=== PATIENT | male | born 1980 | race Caucasian/White ===

== ENCOUNTER 2020-04-26 09:07 | Emergency (ER) | payer OTHER ==
[~2020-04-26] VITALS: Ht 360.7 cm; Wt 109.0 kg
[2020-04-26 09:14] VITALS: BP 153/68
--- NOTE | 2020-04-26 09:28 | PHYS DOC ---
Past History Past Medical History: Hypertension Alcohol Use: Occasionally General Adult EDM: Chief Complaint: CHEST PAIN-CARDIAC NATURE HPI: HPI: 40-year-old male coming in for chest pain since going to bed last night. Patient states he has not had this kind of pain before and has no history of reflux. Says the pain is substernal and intermittently sharp. Says when it com es and goes it is 9 out of 10, currently 3-4 out of 10. Denies any associated symptoms. Denies any diaphoresis, nausea, vomiting, lightheadedness, headaches. Patient has a family history of heart disease on both sides, patient states he only has a history of hypertension and is compliant with medications. Denies any history of tobacco, alcohol, drugs. Review of Systems: Review of Systems: All other systems within normal limits except for as noted in the HPI Allergies: Allergies: Allergies Coded Allergies Type Severity Reaction Last Updated Verified No Known Drug Allergies 04/26/20 No Physical Exam: PE: Constitutional: Well developed, well nourished, no acute distress, non-toxic appearance. [] HENT: Normocephalic, atraumatic, bilateral external ears normal, nose normal. [] Eyes: PERRLA, conjunctiva normal, no discharge. [] Neck: No rigidity, supple, no stridor. [] Cardiovascular: Regular rate and rhythm, brisk cap refill, strong symmetric pulses. No murmurs or gallops [] Lungs & Thorax: Non labored symmetric respirations, no tachypnea or respiratory distress. Lung sounds clear, no chest pain with palpation [] Abdomen: Soft, nondistended, no tenderness or guarding. Skin: Warm, dry, no erythema, no rash. [] Back: Unremarkable Extremities: No deformities, range of motion grossly intact, no lower extremity edema [] Neurologic: Alert and oriented X 3, no focal deficits noted. [] Psychologic: Affect normal, judgement normal, mood normal. [] Current Patient Data: Vital Signs: Vital Signs Date Time Temp Pulse Resp B/P (MAP) Pulse Ox O2 Delivery O2 Flow Rate FiO2 04/26/20 09:14 98.1 64 25 153/68 (96) 96 Room Air EKG: EKG: Normal sinus rhythm, heart rate 60 bpm, no ST elevation or depression, no ectopy, normal axis. Normal intervals. [] Radiology/Procedures: Radiology/Procedures: EXAMINATION: CTA CHEST CLINICAL HISTORY: Chest pain concerning for PE Technique: Spiral CT acquisition of the chest from the thoracic inlet to the upper abdomen following IV contrast with coronal and sagittal reformatted images also provided for review. CT Dose Reduction Employed: One or more of the following individualized dose reduction techniques were utilized for this examination: 1. Automated exposure control 2. Adjustment of the mA and/or kV according to patient size 3. Use of iterative reconstruction technique. Comparison: Chest radiograph same day FINDINGS: Pulmonary Vasculature: No evidence of main, lobar, segmental, or proximal subsegmental pulmonary arterial thrombus. Lung Parenchyma, Pleura, and Airways: Pulmonary hypoexpansion with probable subsegmental atelectasis in the bilateral lower lobes, lingula, and right middle lobe. No focal consolidation. No pleural effusion. Central airways patent. Lower Neck, Lymph Nodes, and Mediastinum: Visualized thyroid gland within normal limits. No mediastinal, hilar, or axillary lymphadenopathy. Heart, Pericardium, and Thoracic Vessels: Heart size at upper limits of normal. No pericardial effusion. Thoracic aorta within normal limits. Bones and Soft Tissues: No acute osseous abnormality. Upper Abdomen: Partially visualized 7 cm cystic lesion in the inferior right hepatic lobe. Tiny round calcifications in the dependent gallbladder body and neck, likely calcified gallstones. Dilated common bile duct and common hepatic duct measuring up to 10 mm in diameter. No calcified biliary ductal stones visualized. IMPRESSION: No evidence of pulmonary embolus. Pulmonary hypoexpansion with probable subsegmental atelectasis as described. Cholelithiasis with dilated common bile and common hepatic ducts. Recommend right upper quadrant ultrasound for further evaluation. Partially visualized 7 cm cystic liver lesion. US ABDOMEN LTD History: Reason: RUQ pain, distended gallbladder / Spl. Instructions: / History: Comparison: CT April 26, 2020. Technique: Transabdominal ultrasound images are obtained of the right upper quadrant. Findings: Liver is normal in echogenicity. Right hepatic lobe cyst measures 5.9 x 5.4 x 7.0 cm. Right hepatic lobe measures 17.5 cm. Portal flow is hepatopedal. Mildly prominent intrahepatic biliary ducts. Distended gallbladder. Tiny cholelithiasis. No gallbladder wall thickening. Common bile duct measures 9 mm in diameter. Visualized pancreas not well seen due to overlying bowel gas. The right kidney measures 12.4 x 6.7 x 6.1 cm. No hydronephrosis. IVC and aorta not well seen due to overlying bowel gas. IMPRESSION: 1. Dilated common bile duct. Recommend correlation with biliary lab values. MRI/MRCP can further evaluate. 2. Distended gallbladder with cholelithiasis. 3. Right hepatic lobe cyst. [] Heart Score: C/O Chest Pain: Yes HEART Score for Chest Pain: HEART Score for Chest Pain Response (Comments) Value History Moderately Suspicious 1 ECG Normal 0 Age < 45 0 Total 1 Risk Factors: Risk Factors: DM, Current or recent (<one month) smoker, HTN, HLP, family history of CAD, obesity. Risk Scores: Score 0 - 3: 2.5% MACE over next 6 weeks - Discharge Home Score 4 - 6: 20.3% MACE over next 6 weeks - Admit for Clinical Observation Score 7 - 10: 72.7% MACE over next 6 weeks - Early Invasive Strategies Course & Med Decision Making: Course & Med Decision Making Pertinent Labs and Imaging studies reviewed. (See chart for details) Patient is going to admit the patient at [facility], spoke with Dr. Harris from GI, he states that the patient has not had any acute cholecystitis or infectious symptoms he can be sent home to be seen as an outpatient for ERCP to remove gallstone. He is requesting patient be sent home on Augmentin. Discussed with patient and he is amenable to plan. Discussed return precautions, patient voiced understanding [] Annalee Disclaimer: Annlaee Disclaimer: This electronic medical record was generated, in whole or in part, using a voice recognition dictation system. Departure Departure: Impression: Primary Impression: Choledocholithiasis with obstruction Disposition: 02 DC/TRF OTHER SHORT TERM HOS Condition: STABLE Referrals: ROXANA HARRIS MD Patient Instructions: Cholelithiasis Additional Instructions: Start taking antibiotics today as prescribed. May take hydrocodone for pain as needed. Will be called by Dr. Barton's office to schedule appointment, he would like to see you on Saturday. Call Dr. Harris's office at [phone] immediately if you have worsening symptoms, yellowing of the skin, or fevers. Scripts Hydrocodone Bit/Acetaminophen (HYDROCODONE-APAP 5-325 ) 1 Each Tablet 1 TAB PO PRN Q6HRS PRN for PAIN for 5 Days, #10 TAB 0 Refills Caution: this medication can make you drowsy. Do not drive or operate heavy machinery when using this medication. Prov: SAADIA GREGORIO MD 04/26/20 Amoxicillin/Potassium Clav (AUGMENTIN 875-125 TABLET) 1 Each Tablet 1 TAB PO BID for antibiotic for 7 Days, #14 TAB 0 Refills Prov: SAADIA GREGORIO MD 04/26/20 SAADIA GREGORIO MD Apr 26, 2020 09:28
[2020-04-26 09:43] LABS: BASO % 0 % (0-3); EOS # 0.2 x10^3/uL (0.0-0.7); EOS % 3 % (0-3); HEMATOCRIT 47.2 % (39.0-53.0); LYMPH # 1.4 x10^3/uL (1.0-4.8); LYMPH % 18 % (24-48); MEAN CORPUSCULAR HEMOGLOBIN 32 pg (25-35); MEAN CORPUSCULAR HGB CONC 34 g/dL (31-37); MEAN CORPUSCULAR VOLUME 94 fL (79-100); MONO # 0.7 x10^3/uL (0.0-1.1); MONO % 9 % (0-9); NEUT # 5.3 x10^3uL (1.8-7.7); NEUT % 69 % (31-73); PLATELET COUNT 307 x10^3/uL (140-400); RED BLOOD COUNT 5.02 x10^6/uL (4.30-5.70); RED CELL DISTRIBUTION WIDTH 12.7 % (11.5-14.5); WHITE BLOOD COUNT 7.7 x10^3/uL (4.0-11.0)
[2020-04-26 09:46] LABS: CALCIUM 9.2 mg/dL (8.5-10.1); CREATININE 0.9 mg/dL (0.7-1.3); GFR 92.5
[2020-04-26 09:52] LABS: ALBUMIN/GLOBULIN RATIO 1.2 (1.0-1.7); POTASSIUM 4.3 mmol/L (3.5-5.1); TOTAL PROTEIN 7.4 g/dL (6.4-8.2)
--- NOTE | 2020-04-26 10:22 | RAD ---
EXAM: Chest, 2 views. HISTORY: Chest pain. COMPARISON: None. FINDINGS: 2 views of the chest are obtained. There is no infiltrate, pleural effusion or pneumothorax . IMPRESSION: No acute pulmonary finding. Electronically signed by: Emelia Veloz MD (04/26/2020 10:20 AM) [id number]
[2020-04-26] MEDS ORDERED: IOHEXOL 350 MG/ML 100 ML VIAL. IV ONE (11:45)
--- NOTE | 2020-04-26 12:23 | EKG ---
[address] [address] Test Date: 2020-04-26 Test Time: 09:13:49 Pat Name: HAYLEYKENAN WILLETT Department: Room: Gender: M Laborer: TONY : 1980 Requested By: SAADIA GREGORIO Order Number: [id number] Reading MD: Measurements Intervals [place] Rate: 62 P: 19 CO: 182 QRS: 23 QRSD: 102 T: 17 QT: 382 QTc: 390 Interpretive Statements SINUS RHYTHM NORMAL ECG RI6.02 No previous ECG available for comparison
--- NOTE | 2020-04-26 13:11 | RAD ---
EXAMINATION: CTA CHEST CLINICAL HISTORY: Chest pain concerning for PE Technique: Spiral CT acquisition of the chest from the thoracic inlet to the upper abdomen following IV contrast with coronal and sagittal reformatted images also provided for review. CT Dose Reduction Employed: One or more of the following individualized dose reduction techniques wer e utilized for this examination: 1. Automated exposure control 2. Adjustment of the mA and/or kV ac cording to patient size 3. Use of iterative reconstruction technique. Comparison: Chest radiograph same day FINDINGS: Pulmonary Vasculature: No evidence of main, lobar, segmental, or proximal subsegmental pulmonary pretty rial thrombus. Lung Parenchyma, Pleura, and Airways: Pulmonary hypoexpansion with probable subsegmental atelectasis in the bilateral lower lobes, lingula, and right middle lobe. No focal consolidation. No pleural effu barrett. Central airways patent. Lower Neck, Lymph Nodes, and Mediastinum: Visualized thyroid gland within normal limits. No mediastin al, hilar, or axillary lymphadenopathy. Heart, Pericardium, and Thoracic Vessels: Heart size at upper limits of normal. No pericardial effusi on. Thoracic aorta within normal limits. Bones and Soft Tissues: No acute osseous abnormality. Upper Abdomen: Partially visualized 7 cm cystic lesion in the inferior right hepatic lobe. Tiny round calcifications in the dependent gallbladder body and neck, likely calcified gallstones. Dilated comm on bile duct and common hepatic duct measuring up to 10 mm in diameter. No calcified biliary ductal s tones visualized. IMPRESSION: No evidence of pulmonary embolus. Pulmonary hypoexpansion with probable subsegmental atelectasis as described. Cholelithiasis with dilated common bile and common hepatic ducts. Recommend right upper quadrant ultr asound for further evaluation. Partially visualized 7 cm cystic liver lesion. Electronically signed by: Les Caballero DO (04/26/2020 1:09 PM) [id number]
--- NOTE | 2020-04-26 13:56 | RAD ---
US ABDOMEN LTD History: Reason: RUQ pain, distended gallbladder / Spl. Instructions: / History: Comparison: CT April 26, 2020. Technique: Transabdominal ultrasound images are obtained of the right upper quadrant. Findings: Liver is normal in echogenicity. Right hepatic lobe cyst measures 5.9 x 5.4 x 7.0 cm. Right hepatic l obe measures 17.5 cm. Portal flow is hepatopedal. Mildly prominent intrahepatic biliary ducts. Distended gallbladder. Tiny cholelithiasis. No gallbladder wall thickening. Common bile duct measures 9 mm in diameter. Visualized pancreas not well seen due to overlying bowel gas. The right kidney measures 12.4 x 6.7 x 6.1 cm. No hydronephrosis. IVC and aorta not well seen due to overlying bowel gas. IMPRESSION: 1. Dilated common bile duct. Recommend correlation with biliary lab values. MRI/MRCP can further cathy luate. 2. Distended gallbladder with cholelithiasis. 3. Right hepatic lobe cyst. Electronically signed by: Fabrizio Valdes DO (04/26/2020 1:54 PM) [facility]
[2020-04-26] MEDS ORDERED: AMOX1TAB61 PO (15:51)
[2020-04-26] MEDS ORDERED: HYDR-2155 PO (15:51)
== END 2020-04-26 15:55 | disposition short-term general hospital (02) ==
LOC: ER 09:07
DX: K80.51 Calculus of bile duct without cholangitis or cholecystitis with obstruction (principal); I10 Essential (primary) hypertension; Z20.822 Contact with and (suspected) exposure to COVID-19
CPT/HCPCS: 36415; 71046; 71275; 76705; 80053; 83690; 84484; 85025; 85379; 93005; 99285; C9803; Q9967; U0003

== ENCOUNTER 2020-04-28 01:05 | Emergency (ER) | payer OTHER ==
[~2020-04-28] VITALS: Ht 190.5 cm; Wt 111.2 kg
[~2020-04-28 01:05] MED LIST: AMOX1TAB61 PO; HYDR-2155 PO
--- NOTE | 2020-04-28 01:37 | PHYS DOC ---
Past History Past Medical History: Hypertension Alcohol Use: Occasionally Adult General Chief Complaint Chief Complaint: ABDOMINAL PAIN HPI HPI Patient is a 40-year-old male who presents with right upper quadrant and epigastric pain. States he was in the emergency department 2 days ago with the same symptoms and told that he needed to be admitted to the hospital to be evalu ated for removing his gallbladder. States that he did not want to be admitted to the hospital and left AGAINST MEDICAL ADVICE. States over the last 2 days the pain had been that bad, about 1 out of 10 so he thought he could eat normally again. States at about 630 last night he had dinner and about 730 or 8 began to have the same pain again in the same area. States it is about 8 out of 10, mostly in the epigastric area with some radiation to the right upper quadrant. States has had some nausea but no vomiting. Denies fevers, chest pain, shortness of breath, dysuria, hematuria, diarrhea or blood in the stool. Denies any alcohol or drug use. States he thinks he is ready to be admitted to have his gallbladder out now. Review of Systems Review of Systems Review of systems otherwise unremarkable except noted in HPI Allergies Allergies Allergies Coded Allergies Type Severity Reaction Last Updated Verified No Known Drug Allergies 04/26/20 No Physical Exam Physical Exam Constitutional: Well developed, well nourished, no acute distress, non-toxic appearance. [] HENT: Normocephalic, atraumatic, bilateral external ears normal, oropharynx moist, no oral exudates, nose normal. [] Eyes: PERRLA, conjunctiva normal, no discharge. [] Neck: Normal range of motion, no tenderness, supple, no stridor. [] Cardiovascular:Heart rate regular rhythm, no murmur [] Lungs & Thorax: Bilateral breath sounds clear to auscultation [] Abdomen: soft, right upper quadrant/epigastric tenderness, no masses, no pulsatile masses. [] Skin: Warm, dry, no erythema, no rash. [] Back: No tenderness, Extremities: No tenderness, no cyanosis, no clubbing, ROM intact, no edema. [] Neurologic: Alert and oriented X 3, normal motor function, normal sensory function, no focal deficits noted. [] Psychologic: Affect normal, judgement normal, mood normal. [] EKG EKG [] Radiology/Procedures Radiology/Procedures [] Heart Score C/O Chest Pain: No Risk Factors: Risk Factors: DM, Current or recent (<one month) smoker, HTN, HLP, family history of CAD, obesity. Risk Scores: Risk Factors: DM, Current or recent (<one month) smoker, HTN, HLP, family history of CAD, obesity. Course & Med Decision Making Course & Med Decision Making Patient is a 40-year-old male who presents with epigastric and right upper quadrant tenderness who is in the emergency department 2 days ago and advised to be admitted for surgical evaluation for cholecystectomy versus further imaging such as MRA who left AMA Vital signs not concerning. Physical exam noted above. Patient placed on the monitor with IV access established. Made NPO. Started on IV fluid res uscitation. Give Zofran for nausea. Gave morphine for pain. Patient stated he just wanted to be admitted and did not want any other labs or imaging. Discussed with patient the need for repeat labs and imaging now as the disease process could have progressed and we need to know what to treat. Patient verbalized understanding and agreed with work-up. [] Laboratory analysis notable for elevated liver enzymes, greater than previous visit. CT suggestive of choledocholithiasis with dilated common bile duct and probable 4 mm stone at the ampulla. Given dose of Zosyn in the emergency department. Discussed findings with patient and recommended transfer and admission for continued evaluation and treatment by surgical and or GI. Patient grateful, verbalized understanding and agreed with plan of transfer/admission. Dragon Disclaimer Dragon Disclaimer This electronic medical record was generated, in whole or in part, using a voice recognition dictation system. Departure Departure: Impression: Primary Impression: Epigastric pain Additional Impressions: Right upper quadrant pain Choledocholithiasis with obstruction Disposition: 01 DC HOME SELF CARE/HOMELESS Admitting Physician: Huy Wright Condition: IMPROVED Referrals: PCP,UNKNOWN (PCP) Problem Qualifiers JANEEN MERCADO MD Apr 28, 2020 01:37
[2020-04-28] MEDS ORDERED: ONDANSETRON PF 4 MG/2 ML VIAL. ONE (01:44)
[2020-04-28] MEDS ORDERED: MORPHINE SULFATE 4 MG/ML DISP.SYRIN. ONE (01:44)
[2020-04-28] MEDS: ONDANSETRON PF 4 MG/2 ML VIAL. IVP ONE (01:47)
[2020-04-28] MEDS: MORPHINE SULFATE 4 MG/ML DISP.SYRIN. IV ONE (01:47)
[2020-04-28] MEDS: IV RINGERS SOLUTION,LACTATED 1,000 ML IV ONE (01:47)
[2020-04-28] MEDS: IOHEXOL 300 MG/ML 75 ML VIAL. IV ONE (01:53)
[2020-04-28 01:55] LABS: BASO # 0.1 x10^3/uL (0.0-0.2); BASO % 1 % (0-3); EOS # 0.4 x10^3/uL (0.0-0.7); EOS % 4 % (0-3); HEMATOCRIT 47.8 % (39.0-53.0); HEMOGLOBIN 16.5 g/dL (13.0-17.5); LYMPH # 2.3 x10^3/uL (1.0-4.8); LYMPH % 28 % (24-48); MEAN CORPUSCULAR HEMOGLOBIN 32 pg (25-35); MEAN CORPUSCULAR HGB CONC 35 g/dL (31-37); MEAN CORPUSCULAR VOLUME 94 fL (79-100); MONO # 0.9 x10^3/uL (0.0-1.1); MONO % 11 % (0-9); NEUT # 4.7 x10^3uL (1.8-7.7); NEUT % 56 % (31-73); PLATELET COUNT 309 x10^3/uL (140-400); RED BLOOD COUNT 5.11 x10^6/uL (4.30-5.70); RED CELL DISTRIBUTION WIDTH 12.7 % (11.5-14.5); WHITE BLOOD COUNT 8.4 x10^3/uL (4.0-11.0)
[2020-04-28 02:00] LABS: CALCIUM 9.1 mg/dL (8.5-10.1); GFR 81.9; POTASSIUM 3.6 mmol/L (3.5-5.1)
[2020-04-28] MEDS ORDERED: CONTRAST GIVEN. MC PRN (02:00)
[2020-04-28 02:06] LABS: TOTAL BILIRUBIN 3.6 mg/dL (0.2-1.0); TOTAL PROTEIN 7.9 g/dL (6.4-8.2)
--- NOTE | 2020-04-28 02:24 | RAD ---
CT ABDOMEN+PELVIS W History: RUQ pain, recent gallbladder issues Comparison: Ultrasound 04/26/2020 Technique: After administration of intravenous contrast, helical CT of the abdomen and pelvis was per formed from the lung bases through the ischial tuberosities. Coronal and sagittal reconstructions wer e obtained. 75 mL of Omnipaque 300 were used. One or more of the following dose reduction techniques were utilized: Automated exposure control (AEC), Adjustment of mA and/or kV according to patient size , Use of iterative reconstruction technique such as ASiR, CT scan done according to ALARA and image g ently/image wisely Abdomen Findings: The visualized lung bases are clear. Hepatic cyst. The pancreas, spleen, and bilateral adrenal glands are normal. Cholelithiasis. Dilated common bile duct measures 13 mm. 4 mm hyperdensity at the ampulla. Symmetric renal enhancement. There is no focal renal mass. There is no hydronephrosis. The visualized loops of small bowel are normal. The visualized loops of large bowel are normal. There is no evidence of bowel obstruction. Appendix is normal. There is no free fluid. There is no mesenteric or retroperitoneal adenopathy. The abdominal aorta is normal in caliber. Mild aortoiliac atherosclerotic disease. Pelvis Findings: Urinary bladder is normal. No pelvic free fluid. There is no pelvic or inguinal adenopathy. There is no acute bony abnormality. Small fat-containing inguinal hernias IMPRESSION: 1. Dilated common bile duct measures 13 mm. 4 mm hyperdensity at the ampulla likely represents choled ocholithiasis. 2. Cholelithiasis. No pericholecystic fluid. Electronically signed by: Mahin Zhang MD (04/28/2020 2:21 AM) [facility]
[2020-04-28] MEDS ORDERED: IV NORMAL SALINE 50ML 50 ML ONE (02:40)
[2020-04-28] MEDS ORDERED: PIPERACILLIN/TAZOBACTAM 4.5 GM VIAL IV ONE (02:41)
[2020-04-28 02:44] VITALS: BP 126/69
--- NOTE | 2020-04-28 02:47 | RAD ---
US ABDOMEN LTD INDICATION: Reason: RUQ pain / Spl. Instructions: / History: COMPARISON: 04/26/2020. TECHNIQUE: Limited transverse and longitudinal grayscale images of the right upper quadrant with colo r and pulsed doppler utilized as appropriate. FINDINGS: The liver demonstrates increased echogenicity without focal lesions. The liver measures 18 cm. The po rtal vein is patent with normal antegrade flow. Cholelithiasis and sludge. No wall thickening or pericholecystic fluid. Sonographic Lees's sign is reported as present. The common bile duct measures 1.0 cm. The visualized portions of the pancreas demonstrate normal echogenicity without focal lesions. The right kidney has normal echogenicity and measures 12.5 cm. No hydronephrosis, shadowing stones or suspicious masses seen. No ascites or fluid collections. The aorta and IVC are normal diameter where visualized. IMPRESSION: 1. Cholelithiasis and sludge. Sonographic Lees's sign is reported as present. No pericholecystic fl uid or gallbladder wall thickening. Correlate with laboratory values. 2. Dilated common bile duct. 3. Hepatic steatosis. Electronically signed by: Mahin Zhang MD (04/28/2020 2:45 AM) [facility]
[2020-04-28] MEDS: PIPERACILLIN/TAZOBACTAM 4.5 GM in IV NORMAL SALINE 50ML 50 ML IV ONE (02:49)
== END 2020-04-28 03:55 | disposition home or self-care (01) ==
LOC: ER 01:05
DX: K80.51 Calculus of bile duct without cholangitis or cholecystitis with obstruction (principal); I10 Essential (primary) hypertension; Z20.822 Contact with and (suspected) exposure to COVID-19
CPT/HCPCS: 36415; 74177; 76705; 80053; 83605; 83690; 85025; 87426; 96361; 96365; 96375; 99285; C9803; J2270; J2405; J2543; J7120; Q9967; U0003